=== PATIENT | female | born 1950 | race Caucasian/White ===

== ENCOUNTER 2025-07-23 15:38 | Outpatient (OUT) | payer MEDICARE, SELFPAY ==
--- NOTE | 2025-07-23 | XR_ITS ---
The [address] [address] Patient Name: PAULINA KHAN MRN: [id number] date: 1950 Sex: F Assigned Patient Location: [facility] Current Patient Location: [facility] Accession/Order Number: [id number] Exam Date: 07/23/2025 15:55 Report Date: 07/23/2025 16:25 At the request of: SINDY FLORES MD Procedure: XR chest 2V PA AND LATERAL CHEST: CLINICAL HISTORY: asthma. Cough. J45.909 COMPARISON: None The lungs are hyperinflated. There is no focal parenchymal consolidation, effusion or pneumothorax. The cardiac, hilar and mediastinal silhouettes are within normal limits. There is no vascular congestion. The visualized bony structures are osteopenic. There is slight dextroscoliotic curvature. There is mild degenerative change at the spine and shoulders. Hemostasis clips are noted at the right lower neck. XR/XR chest 2V IMPRESSION: OBSTRUCTIVE LUNG DISEASE. NO ACUTE CARDIOPULMONARY ABNORMALITY. Impression dictated by: Angi Poole M.D. 07/23/2025 4:25 PM Dictation Location: [place] [address] Electronically authenticated by: [id number] Date: 07/23/2025 16:25
== END 2025-07-23 15:39 | disposition home or self-care (01) ==
PROVIDERS: Family Provider Internal Medicine; PCP Family Medicine; Visit Provider Family Medicine
DX: J45.909 Unspecified asthma, uncomplicated (principal)
CPT/HCPCS: 71046